=== PATIENT | female | born 1990 | race Caucasian/White ===

== ENCOUNTER 2016-12-23 16:13 | Emergency (ER) | payer SELFPAY ==
[2016-12-23] MEDS ORDERED: ULTRAM50 M1 PO (17:01)
[2016-12-23] MEDS ORDERED: PENICILLIN V P500 M1 PO (17:01)
== END 2016-12-23 17:06 ==
LOC: EDMED 16:13
DX: K03.81 Cracked tooth (principal); Z87.891 Personal history of nicotine dependence